=== PATIENT | male | born 1980 | race American Indian/Alaskan Native ===

== ENCOUNTER 2022-03-31 20:15 | Emergency (ER) | payer SELFPAY ==
--- NOTE | 2022-03-31 22:22 | XRay Report ---
LUMBAR SPINE 3 VIEWS INDICATION: Back pain after lifting a heavy object. COMPARISON: No relevant prior imaging study available. FINDINGS: VERTEBRAE: No acute fracture. Normal alignment. DISC SPACES: No significant abnormality. FACET JOINTS: No significant abnormality. SOFT TISSUES: No significant abnormality. ADDITIONAL FINDINGS: No additional significant findings. IMPRESSION: 1. No acute findings. Signer Name: Arthur Rosario MD Signed: 03/31/2022 10:17 PM Workstation Name: [id number]
[2022-04-01 02:36] VITALS: BP 110/69
[2022-04-01] MEDS ORDERED: HYDROcodone/ACETAMINOPHEN 5-325 MG TAB PO ONE (02:55)
--- NOTE | 2022-04-01 02:59 | Emergency Department Report ---
ED General Adult HPI - General Chief complaint: Back Pain/Injury Stated complaint: BACK/PRIVATE PAIN Time Seen by Provider: 04/01/22 02:31 Source: patient Mode of arrival: Ambulatory Limitations: No Limitations - History of Present Illness Initial comments: 41-year-old male with no significant past medical history reports to the ER today after lifting a heavy refrigerator on Wednesday as well as report left testicular pain on Wednesday as well. Patient reports left testicle pain has improved and denies any swelling. Patient reports taking Motrin and ove [id number] lidocaine patches. Reports no decrease in pain. No numbness no tingling lower extremity. No loss of bowel or bladder. No other acute symptoms reported. - Related Data Previous Rx's Medication Instructions Recorded Last Taken Type Acetaminophen/Codeine [Tylenol 1 tab PO Q6H PRN 2 Days #8 tab 04/01/22 Unknown Rx /Codeine # 3 tab] Lidocaine [Lidocaine Pain Relief] 1 each TP Q12HR PRN 5 Days #10 04/01/22 Unknown Rx patch methOCARBAMOL [Robaxin TAB] 500 mg PO BID PRN 7 Days #14 tab 04/01/22 Unknown Rx Allergies Allergy/AdvReac Type Severity Reaction Status Date / Time No Known Allergies Allergy Unverified 03/31/22 21:49 ED Review of Systems ROS: Stated complaint: BACK/PRIVATE PAIN Other details as noted in HPI Comment: All other systems reviewed and negative Musculoskeletal: back pain ED Past Medical Hx - Medications Home Medications: Home Medications Medication Instructions Recorded Confirmed Last Taken Type Acetaminophen/Codeine [Tylenol 1 tab PO Q6H PRN 2 Days #8 tab 04/01/22 Unknown Rx /Codeine # 3 tab] Lidocaine [Lidocaine Pain Relief] 1 each TP Q12HR PRN 5 Days #10 04/01/22 Unknown Rx patch methOCARBAMOL [Robaxin TAB] 500 mg PO BID PRN 7 Days #14 tab 04/01/22 Unknown Rx ED Physical Exam - General Limitations: No Limitations General appearance: alert, in no apparent distress - Head Head exam: Present: atraumatic, normocephalic - Eye Eye exam: Present: normal appearance - ENT ENT exam: Present: mucous membranes moist - Neck Neck exam: Present: normal inspection - Respiratory Respiratory exam: Present: normal lung sounds bilaterally. Absent: respiratory distress - Cardiovascular Cardiovascular Exam: Present: regular rate, normal rhythm. Absent: systolic murmur, diastolic murmur, rubs, gallop - GI/Abdominal GI/Abdominal exam: Present: soft, normal bowel sounds - Rectal Rectal exam: Present: deferred - Extremities Exam Extremities exam: Present: normal inspection - Back Exam Back exam: Present: normal inspection, tenderness (Bilateral low back tenderness present). Absent: paraspinal tenderness, vertebral tenderness - Neurological Exam Neurological exam: Present: alert, oriented X3 - Psychiatric Psychiatric exam: Present: normal affect, normal mood - Skin Skin exam: Present: warm, dry, intact, normal color. Absent: rash ED Course Vital Signs 03/31/22 04/01/22 21:44 02:09 Temperature 98.6 F Pulse Rate 72 67 Respiratory 18 12 Rate Blood Pressure 142/72 110/69 [Right] O2 Sat by Pulse 99 99 Oximetry ED Medical Decision Making - Medical Decision Making 41-year-old male with no significant past medical history reports to the ER today after lifting a heavy refrigerator on Wednesday as well as report left testicular pain on Wednesday as well. Patient reports left testicle pain has improved and denies any swelling. Patient reports taking Motrin and [id number] lidocaine patches. Reports no decrease in pain. No numbness no tingling lower extremity. No loss of bowel or bladder. No other acute symptoms reported. On physical exam patient has bilateral lower back tenderness in the muscular area. No spinal tenderness process noted no step-offs. No swelling noted. Range of motion intact. No imaging is needed at this time. Patient received oral medication here in the ER. Patient sent home with oral medication prescription. Patient informed to follow his primary care provider for further management. Patient informed if symptoms are to get worse to report back to the ER. Patient agrees with plan of care verbalized understanding. Vital Signs 03/31/22 04/01/22 21:44 02:09 Temperature 98.6 F Pulse Rate 72 67 Respiratory 18 12 Rate Blood Pressure 142/72 110/69 [Right] O2 Sat by Pulse 99 99 Oximetry Critical care attestation.: If time is entered above; I have spent that time in minutes in the direct care of this critically ill patient, excluding procedure time. ED Disposition Clinical Impression: Low back strain Qualifiers: Encounter type: initial encounter Qualified Code(s): S39.012A - Strain of muscle, fascia and tendon of lower back, initial encounter Bilateral low back pain Qualifiers: Chronicity: acute Sciatica presence: without sciatica Qualified Code(s): M54.50 - Low back pain, unspecified Disposition: 01 HOME / SELF CARE / HOMELESS Is pt being admited?: No Condition: Stable Instructions: Acute Back Pain, Adult, Muscle Strain, [id number], Lumbar Strain, Back Injury Prevention Prescriptions: Lidocaine [Lidocaine Pain Relief] 1 each TP Q12HR PRN 5 Days #10 patch PRN Reason: Pain , Severe (7-10) methOCARBAMOL [Robaxin TAB] 500 mg PO BID PRN 7 Days #14 tab PRN Reason: muscle spasm Acetaminophen/Codeine [Tylenol /Codeine # 3 tab] 1 tab PO Q6H PRN 2 Days #8 tab PRN Reason: Pain , Severe (7-10) Referrals: LORENZO JACOBS MD [Primary Care Provider] - 3-5 Days
== END 2022-04-01 03:11 | disposition home or self-care (01) ==
LOC: ED 20:15
DX: S39.012A Strain of muscle, fascia and tendon of lower back, initial encounter (principal); N50.812 Left testicular pain; Z79.899 Other long term (current) drug therapy; X50.1XXA Overexertion from prolonged static or awkward postures, initial encounter; Y93.89 Activity, other specified; Y92.89 Other specified places as the place of occurrence of the external cause; Y99.8 Other external cause status
CPT/HCPCS: 72100; 99283